=== PATIENT | male | born 1985 | race Two or more races ===

== ENCOUNTER 2020-07-31 11:56 | Emergency (ER) | payer OTHER ==
[~2020-07-31] VITALS: Ht 182.9 cm; Wt 81.6 kg
[2020-07-31] MEDS ORDERED: LIDOCAINE W/ EPINEPHRINE 1% 20ML VIAL ID ONE (14:45)
[2020-07-31] MEDS ORDERED: cefTRIAXone 1GM/50ML D5W 50 ML IV ONE (15:30)
[2020-07-31 17:26] VITALS: BP 116/71
== END 2020-07-31 17:27 | disposition home or self-care (01) ==
LOC: ER 11:56 → EDBD 11:56 → ER 17:27
DX: S01.01XA Laceration without foreign body of scalp, initial encounter (principal); W19.XXXA Unspecified fall, initial encounter; Y93.89 Activity, other specified; Y99.8 Other external cause status; Y92.89 Other specified places as the place of occurrence of the external cause
CPT/HCPCS: 12002; 70450; 96365; 99285; J0696